=== PATIENT | male | born 1965 | race Caucasian/White ===

== ENCOUNTER → 2020-07-20 10:01 | Outpatient (BNVA) | payer OTHER, SELFPAY | PROVIDERS: PCP Internal Medicine; Visit Provider Urology ==

== ENCOUNTER 2021-07-09 07:51 | Outpatient (REF) | payer OTHER, SELFPAY ==
--- NOTE | ~2021-07-09 | US_ITS ---
EXAMINATION: US RETROPERITONEAL LIMITED (RENAL ONLY) CLINICAL INFORMATION: Calculus of kidney. COMPARISON: None. TECHNIQUE: Real-time imaging of the kidneys. FINDINGS: RIGHT KIDNEY: 10.0 x 5.1 x 5.6 cm (SAG x AP x TRV). The kidney is normal in size, contour, and echogenicity. Renal cortical thickness is normal. No calculi or focal parenchymal lesions. No hydronephrosis. LEFT KIDNEY: 10.3 x 6.7 x 5.3 cm (SAG x AP x TRV). The kidney is normal in size, contour, and echogenicity. Renal cortical thickness is normal. No focal parenchymal lesions or hydronephrosis. There is an echogenic 5 x 4 mm foci, question small stone versus vascular calcification. US/US renal BI IMPRESSION: Small fibroid echogenic foci upper/midpole left kidney, question vascular calcification versus small stone. The right kidney is unremarkable. No hydronephrosis on either side.
== END 2021-07-09 07:52 | disposition home or self-care (01) ==
LOC: HO.US 07:51
PROVIDERS: PCP Internal Medicine; Visit Provider Urology
DX: N20.0 Calculus of kidney (principal)
CPT/HCPCS: 76775

== ENCOUNTER → 2021-07-26 08:10 | Outpatient (BNVA) | payer OTHER, SELFPAY | PROVIDERS: PCP Internal Medicine; Visit Provider Urology ==

== ENCOUNTER 2022-07-07 07:45 | Outpatient (REF) | payer OTHER, SELFPAY ==
--- NOTE | ~2022-07-07 | US_ITS ---
EXAMINATION: US RETROPERITONEAL LIMITED (RENAL ONLY) CLINICAL INFORMATION: Calculus of kidney. COMPARISON: Renal ultrasound 07/09/2021. TECHNIQUE: Real-time imaging of the kidneys. FINDINGS: RIGHT KIDNEY: 10.6 x 6.2 x 5.6 cm (SAG x AP x TRV). The kidney is normal in size, contour, and echogenicity. Renal cortical thickness is normal. No calculi or focal parenchymal lesions. No hydronephrosis. LEFT KIDNEY: 11.2 x 6.7 x 4.5 cm (SAG x AP x TRV). The kidney is normal in size, contour, and echogenicity. Renal cortical thickness is normal. No calculi or focal parenchymal lesions. No hydronephrosis. US/US renal BI IMPRESSION: Unremarkable examination.
== END 2022-07-07 07:46 | disposition home or self-care (01) ==
LOC: HO.US 07:45
PROVIDERS: PCP Internal Medicine; Visit Provider Urology
DX: N20.0 Calculus of kidney (principal)
CPT/HCPCS: 76775

== ENCOUNTER → 2022-07-25 10:59 | Outpatient (BNVA) | payer OTHER, SELFPAY | PROVIDERS: PCP Internal Medicine; Visit Provider Urology | DX: Z13.89 Encounter for screening for other disorder (principal) ==

== ENCOUNTER 2023-07-13 07:30 | Outpatient (REF) | payer OTHER, SELFPAY ==
--- NOTE | ~2023-07-13 | US_ITS ---
EXAMINATION: US RETROPERITONEAL LIMITED (RENAL ONLY) CLINICAL INFORMATION: Calculus of kidney. COMPARISON: Renal ultrasound 07/07/2022 and 07/09/2021. TECHNIQUE: Real-time imaging of the kidneys. FINDINGS: RIGHT KIDNEY: 10.3 x 6.5 x 5.8 cm (SAG x AP x TRV). The kidney is normal in size, contour, and echogenicity. Renal cortical thickness is normal. No calculi or focal parenchymal lesions. No hydronephrosis. LEFT KIDNEY: 10.4 x 6.6 x 4.2 cm (SAG x AP x TRV). The kidney is normal in size, contour, and echogenicity. Renal cortical thickness is normal. No focal parenchymal lesions or hydronephrosis. There are 2 renal stones seen on the left are in the upper pole nonobstructing calculus measured 0.3 cm and in the lower pole 0.3 cm calculus seen as well US/US renal BI IMPRESSION: Nonobstructing 0.3 cm stones in left kidney
== END 2023-07-13 07:31 | disposition home or self-care (01) ==
LOC: HO.US 07:30
PROVIDERS: PCP Internal Medicine; Visit Provider Urology
DX: N20.0 Calculus of kidney (principal)
CPT/HCPCS: 76775

== ENCOUNTER 2023-09-01 13:29 | Outpatient (AMB) | payer OTHER, SELFPAY ==
--- NOTE | 2023-09-01 13:42 | A.OFFVIS_ITS ---
Intake Intake Visit Reasons: 1Y US(SET)confirmed Intake Note: Patient is Present for Follow Up Urology Medication:Vitamin B6 Antibiotic Allergies: Penicillins Blood Thinners: None Allergies penicillin V Allergy (Unknown, Verified 07/25/22 11:26) Unknown Penicillins [PENICILLINS] Allergy (Unknown, Verified 07/25/22 11:26) UNKNOWN REACTION-CHILDHOOD ALLERGY Iodinated Contrast Media [IV CONTRAST] Adverse Reaction (Severe, Verified 07/25/22 11:26) SEVERE CHILLS HPI HPI Comments History of Present Illness Details Mr Burns is a very pleasant male. He is a patient Dr Whipple. He is seen for the following urologic conditions. 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 The patient previously had kidney stones whose composition w calcium oxalate. Laboratory investigations include no recent labs. 24 Hour urine evaluation 05/24 low-volume, borderline calcium, high oxalate, low citrate 11/23 Good volume, , Hypercalciuria (> 200mg), High Sodium (> 100mEq), good oxalate, good citrate 05/25 , Good Volume > 2.00 L, Low calcium < 200, High Citrate, Oxalate up, High Sodium (> 100mEq) 05/26 good volume, high calcium, high oxalate. Prior treatment(s) include right, ureteroscopy 05/24 , medical management, with allopurinol, with dietary advice to increase fluids, decrease salt and watch protein intake 05/25 Vit B6, K-cit Prior imaging includes 2013 a KUB x-ray, showing no evidence of stones 12/22 , a KUB x-ray, showing radiodense stone(s), on the right 2-3mm, 03/24 , a renal , showing radiodense stone(s), bilaterally, 5-10 mm, 05/24 , a KUB x-ray, showing radiodense stone(s), on the right, 1-2 mm 11/23 , a renal ultrasound, showing no evidence of stones, 05/25 , a renal ultrasound, showing no evidence of stones 05/26, a renal ultrasound, showing no evidence of stones 06/28 renal ultrasound with no evidence of stones, 06/29 renal ultrasound question of small stone on left versus vascular calcification, 06/30 no evidence of stones Current therapeutic plan will be continue medications Imaging as required [facility] Medical History HTN (hypertension) Hyperlipidemia Diabetes mellitus Gout Asthma Hypernatriuria Hyperoxaluria Hypocitraturia Calcium oxalate calculus Calculus of both kidneys Surgical History History of surgery Review of Systems Const Denies chills and Denies fever(s) Card Reports no additional complaints and Denies syncope Resp Denies cough GI Denies abdominal pain and Denies heartburn Reports as per HPI and Denies change in libido Neuro Denies syncope Psych Denies change in libido Endo Denies change in libido Physical Exam Const General: cooperative, healthy appearing, comfortable and no acute distress Orientation/consciousness: patient oriented x3 HEENT Face and sinus: Yes normal facial exam Mouth: moist mucous membranes Neck Neck: Yes normal visual inspection, Yes full ROM and Yes trachea midline Chest Chest palpation & inspection: normal inspection of the chest Resp Effort & Inspection: normal respiratory effort, able to speak in complete sentences and no respiratory distress GI Inspection: Yes normal to inspection Back/Spine/Pelvis Cervical Spine: normal cervical lordosis Thoracic/Lumbar Spine: thoracic and lumbar spine normal to inspection Skin General skin exam: no rashes or lesions noted Neuro General: patient oriented x3, gait normal, tone normal and moves all extremities Extrem General: Yes normal to inspection and Yes capillary refill normal Assessment & Plan Assessment & Plan (1) Nephrolithiasis: Code(s): N20.0 - Calculus of kidney Plan Would like to check stones in 6 months Orders: Orders US renal BI 6 Months N20.0 - Calculus of kidney Patient Instructions: Imaging studies, laboratory and physical exam results were discussed and reviewed in detail. No major barriers to patient understanding were identified. An opportunity to ask questions regarding the treatment plan was provided. All questions were answered. The patient expressed understanding and agreement with the above treatment plan. The patient is aware they should contact our office by phone for worsening of their current condition or the appearance of new urologic symptoms. Compliance is encouraged with any medications and followup testing that is ordered. It is a privilege to participate in the urologic care of your patient. If you have any questions or concerns regarding treatment for the above conditions, or other urologic issues, please do not hesitate to contact me. The office telephone contact is [phone]. This note is constructed using voice recognition software. While every effort has been made to ensure accuracy tractor operator helper errors may have been included. Yours sincerely, Dr Matthew Arboleda MD, A[facility] - Urology Providers of Expert, Compassionate Care for the Genitourinary System Coding Level of Care Code Est Pt Level 4 (53714) Diagnoses Nephrolithiasis N20.0
== END 2023-09-01 14:48 | disposition home or self-care (01) ==
PROVIDERS: Visit Provider Urology
DX: N20.0 Calculus of kidney (principal)
CPT/HCPCS: 99213

== ENCOUNTER → 2023-09-01 13:29 | Outpatient (BNVA) | payer OTHER, SELFPAY | PROVIDERS: Visit Provider Urology ==

== ENCOUNTER 2024-02-09 10:43 | Outpatient (REF) | payer OTHER, SELFPAY ==
--- NOTE | ~2024-02-09 | US_ITS ---
EXAMINATION: I plan to deliver treatment to confirm US RETROPERITONEAL COMPLETE (RENAL) CLINICAL INFORMATION: Calculus of kidney. COMPARISON: 07/13/2023 TECHNIQUE: Real-time imaging of the kidneys and bladder. Limited visualization due to bowel gas. FINDINGS: RIGHT KIDNEY: 10.8 x 5.5 x 6.2 cm (SAG x AP x TRV). No hydronephrosis. No renal calculi. Renal cortical thickness is normal. Limited visualization. LEFT KIDNEY: 10.6 x 6.4 x 4.1 cm (SAG x AP x TRV). A 3 mm upper pole calculus. No hydronephrosis. Renal cortical thickness is normal. Limited visualization. US/US renal BI IMPRESSION: Left renal 3 mm nonobstructing calculus. No hydronephrosis. Electronically signed by: Amalia Harris MD 02/10/2024 04:50 PM EDT
== END 2024-02-09 10:44 | disposition home or self-care (01) ==
LOC: HO.US 10:43
PROVIDERS: PCP Internal Medicine; Visit Provider Urology
DX: N20.0 Calculus of kidney (principal)
CPT/HCPCS: 76775

== ENCOUNTER 2024-03-01 13:28 | Outpatient (AMB) | payer OTHER, SELFPAY ==
--- NOTE | 2024-03-01 13:50 | A.OFFVIS_ITS ---
Intake Visit Reasons: 6M Ultrasound Follow Up(set) Intake Note: Patient is Present for 6M ULTRASOUND Follow Up Urology Medication:Vitamin B6,ALLOPURINOL Antibiotic Allergies: Penicillins Blood Thinners: None Neurology Director Required: No Allergies penicillin V Allergy (Unknown, Verified 03/01/24 13:51) Unknown Penicillins [PENICILLINS] Allergy (Unknown, Verified 03/01/24 13:51) UNKNOWN REACTION-CHILDHOOD ALLERGY Iodinated Contrast Media [IV CONTRAST] Adverse Reaction (Severe, Verified 03/01/24 13:51) SEVERE CHILLS Medication List - Last Reconciled 03/01/24 by Matthew Arboleda MD albuterol sulfate 90 mcg/actuation 2 puffs PO Q4H allopurinol 300 mg PO DAILY losartan 25 mg PO DAILY magnesium gluconate 27 mg PO DAILY 90 days mometasone 50 mcg/actuation 2 sprays intranasal DAILY pyridoxine (vitamin B6) 100 mg PO DAILY 90 days HPI Comments Details: Mr Burns is a very pleasant male. He is a patient Dr Whipple. He is seen for the following urologic conditions. 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 The patient previously had kidney stones whose composition w calcium oxalate. Laboratory investigations include no recent labs. 24 Hour urine evaluation 05/24 low-volume, borderline calcium, high oxalate, low citrate 11/23 Good volume, , Hypercalciuria (> 200mg), High Sodium (> 100mEq), good oxalate, good citrate 05/25 , Good Volume > 2.00 L, Low calcium < 200, High Citrate, Oxalate up, High Sodium (> 100mEq) 05/26 good volume, high calcium, high oxalate. Prior treatment(s) include right, ureteroscopy 05/24 , medical management, with allopurinol, with dietary advice to increase fluids, decrease salt and watch protein intake 05/25 Vit B6, K-cit Prior imaging includes 2013 a KUB x-ray, showing no evidence of stones 12/22 , a KUB x-ray, showing radiodense stone(s), on the right 2-3mm, 03/24 , a renal , showing radiodense stone(s), bilaterally, 5-10 mm, 05/24 , a KUB x-ray, showing radiodense stone(s), on the right, 1-2 mm 11/23 , a renal ultrasound, showing no evidence of stones, 05/25 , a renal ultrasound, showing no evidence of stones 05/26, a renal ultrasound, showing no evidence of stones 06/28 renal ultrasound with no evidence of stones, 06/29 renal ultrasound question of small stone on left versus vascular calcification, 06/30 no evidence of stones Current therapeutic plan will be continue medications Imaging as required [facility] Medical History HTN (hypertension) Hyperlipidemia Diabetes mellitus Gout Asthma Hypernatriuria Hyperoxaluria Hypocitraturia Calcium oxalate calculus Calculus of both kidneys Surgical History History of surgery Assessment & Plan Assessment & Plan (1) Nephrolithiasis: Code(s): N20.0 - Calculus of kidney Category: Medical Plan 12 month follow-up renal imaging Orders: Orders US renal BI 12 Months N20.0 - Calculus of kidney Patient Instructions: Imaging studies, laboratory and physical exam results were discussed and reviewed in detail. No major barriers to patient understanding were identified. An opportunity to ask questions regarding the treatment plan was provided. All questions were answered. The patient expressed understanding and agreement with the above treatment plan. The patient is aware they should contact our office by phone for worsening of their current condition or the appearance of new urologic symptoms. Compliance is encouraged with any medications and followup testing that is ordered. It is a privilege to participate in the urologic care of your patient. If you have any questions or concerns regarding treatment for the above conditions, or other urologic issues, please do not hesitate to contact me. The office telephone contact is [phone]. This note is constructed using voice recognition software. While every effort has been made to ensure accuracy senior construction project manager errors may have been included. Yours sincerely, Dr Matthew Arboleda MD, [facility] - Urology Providers of Expert, Compassionate Care for the Genitourinary System Coding Level of Care Code Est Pt Level 3 (77011) Diagnoses Nephrolithiasis N20.0
== END 2024-03-01 15:28 | disposition home or self-care (01) ==
PROVIDERS: PCP Internal Medicine; Visit Provider Urology
DX: N20.0 Calculus of kidney (principal)
CPT/HCPCS: 99213

== ENCOUNTER → 2024-03-01 13:28 | Outpatient (BNVA) | payer OTHER, SELFPAY | PROVIDERS: PCP Internal Medicine; Visit Provider Urology ==

== ENCOUNTER 2025-02-07 10:19 | Outpatient (REF) | payer OTHER, SELFPAY ==
--- NOTE | ~2025-02-07 | US_ITS ---
CLINICAL HISTORY: N20.0 - Calculus of kidney US of kidneys Comparison: US/SR - US RENAL BI - 02/09/24 10:48 EDT Findings: Right kidney is normal in size, echogenicity and morphology, 10.7 cm in length. No calculus, mass or hydronephrosis. Left kidney is normal in size, echogenicity and morphology, 10.5 cm in length. 5 mm calculus at the midpole, no mass or hydronephrosis. Limited color Doppler demonstrates unremarkable bilateral blood flow. Impression: Nonobstructing left nephrolithiasis. This document has been electronically signed by: Anaid Noel MD on 02/07/2025 13:21:10
--- OUTSIDE RECORDS SUMMARY | 2025-02-07 11:51 | XMS_ITS | Clinical Summary ---
Author Organization [facility] Address [address] [place] [phone] Phone Care Team Providers Care Commercial Illustrator Name Role Phone Daniel Whipple MD Primary Care Provider [phone] Medications losartan (COZAAR) 25 MG tablet Take 1 tablet by mouth daily. Active mometasone (NASONEX) 50 mcg/actuation nasal spray 2 sprays in each nostril Nasally Once a day Active allopurinol (ZYLOPRIM) 100 MG tablet Take 1 tablet by mouth daily. Active Encounters Date Type Department Care Team Description 01/13/2025 8:30 AM EDT - 01/13/2025 11:59 PM EDT Hospital Encounter [facility] [address] [place] [address] Daniel Whipple MD Discharge Disposition: Home or Self Care from Last 3 Months Social History Tobacco Use Types Packs/Day Years Used Date Smoking Tobacco: Never Assessed Education Answer Date Recorded Are you interested in more education? Not on henrique e 05/14/2023 Are you concerned about learning? Not on file 05/14/2023 No 05/14/2023 No 05/14/2023 Digital Access Answer Date Recorded No 05/14/2023 No 05/14/2023 Reliable internet access at home? Not on file 05/14/2023 Device with a working camera? Not on file Sex and Gender Information Value Date Recorded Sex Assigned at Not on file Legal Sex Male 9:42 PM EDT Gender Identity Not on file Sexual Orientation Not on file Last Filed Vital Signs Vital Sign Reading Time Taken Comments Blood Pressure 134/90 05/14/2023 1:50 PM EST Pulse 69 06/13/2016 8:30 AM EST Temperature - - Respiratory Rate - - Oxygen Saturation 98% 05/14/2023 1:00 PM EST Inhaled Oxygen Concentration - - Weight 87.3 kg (192 lb 6.4 oz) 06/13/2016 8:30 A M EST Height 175.3 cm (5' 9 ) 06/13/2016 8:30 AM EST Body Mass Index 28.41 06/13/2016 8:30 AM EST Plan of Treatment Not on file Medical Devices Not on file Procedures Procedure Name Priority Date/Time Associated Diagnosis Comments ANATOMIC PATHOLOGY Routine 01/13/2025 12 :00 AM EDT from Last 3 Months Results * Anatomic Pathology (01/13/2025 12:00 AM EDT) 01/13/2025 01/16/2025 10: 51 AM EDT Narrative SEE NARRATIVE - 01/17/2025 2:43 [place] [address] Customer Energy Specialist: Darren Roblero MD Surgical Pathology Report FINAL PATHOLOGIC DIAGNOSIS: SKIN, HAND, SHAVE BIOPSY: Cellular dermatofibroma. Note: Immunostains reveals that the lesional cells are nonreactive with CD34, pancytokeratin and S100. There is no evidence of dermatofibrosarcoma protuberans or an epithelial or melanocytic lesion. Electronically Signed Out By Genevieve Hollingsworth MD By his/her signature above, the pathologist listed as making the Final Diagnosis certifies that he/she has personally reviewed this case and confirmed or corrected the diagnosis. CLINICAL HISTORY Follicular cyst of the skin on hand and subcutaneous tissue, unspecified (L72.9) SPECIMENS SUBMITTED: A: SKIN, HAND, BIOPSY GROSS DESCRIPTION SKIN, HAND, BIOPSY: Received in formalin is a 0.6 x 0.6 cm circular portion of edward skin excised to maximum depth of 0.1 cm which exhibits a 0.5 x 0.4 x 0.2 cm firm, edward papule. The specimen is bisected and entirely submitted in a single cassette labeled A1. Grossed by: RAYMON Johnson, FLACA(ASCP) HINA 01/17/2025 Grossing Staff: [email or web address] One or more of the reagents used in immunohistochemical testing in this case may not have been cleared or approved by the U.S. Food and Drug Administration (FDA). The FDA has determined that such clearance or approval is not necessary. These tests are used for clinical purposes. This should not be regarded as investigational or for research. These reagents' performance characteristics have been determined by the [facility]. This laboratory is certified under the Clinical Laboratory Improvement Amendments of 1988 (CLIA-88) as qualified to perform high complexity clinical laboratory testing. Immunohistochemistry is performed on formalin-fixed paraffin-embedded sections (unless otherwise specified) and on a Benchmark Ultra immunostainer which utilizes a proprietary polymer detection system. Positive, negative and internal controls, when present, stain appropriately. Patient Name: JOSH ROJAS : 1965 (Age: 59) Sex: M Institution: [facility] Location: [facility] Date of Operation: 01/13/2025 Date of Reported: 01/17/2025 14:43 Results To: Daniel Whipple MD, BS Daniel Whipple MD PATHOLOGY ORDERABLES Final Resu lt SEE NARRATIVE from Last 3 Months Insurance [facility] TOTAL CHOICE INDEMNITY [facility] [facility] TOTAL CHOICE INDEMNITY [employer] [facility] TOTAL CHOICE INDEMNITY [employer] TOTAL CHOICE INDEMNITY [employer] TOTAL CHOICE INDEMNITY [facility] TOTAL CHOICE INDEMNITY Care Teams Commercial Illustrator Relationship Specialty Start Date End Date Daniel Whipple MD [email or web address] PCP - General 06/11/17 Additional Source Comments The information contained in this document represents components of the legal health record. It is not the complete legal health record.[facility]
== END 2025-02-07 10:20 | disposition home or self-care (01) ==
LOC: HO.US 10:19
PROVIDERS: PCP Internal Medicine; Visit Provider Urology
DX: N20.0 Calculus of kidney (principal)
CPT/HCPCS: 76775

== ENCOUNTER → 2025-02-07 10:20 | Outpatient (BNV) | payer OTHER, SELFPAY | PROVIDERS: PCP Internal Medicine; Visit Provider Radiology Diagnostic Radiology | DX: N20.0 Calculus of kidney (principal) | CPT/HCPCS: 76775 ==

== ENCOUNTER 2025-03-01 09:09 | Outpatient (AMB) | payer OTHER, SELFPAY ==
--- NOTE | 2025-03-01 09:19 | A.OFFVIS_ITS ---
Intake Visit Reasons: 1y/US Intake Note: Patient is Present for 1 yr ULTRASOUND Follow Up Urology Medication:Vitamin B6,ALLOPURINOL Antibiotic Allergies: Penicillins Blood Thinners: None Imaging : Ultrasound 02/07/25 Laundry Agent Required: No Accompanied by: Self / Same As Patient Allergies penicillin V Allergy (Unknown, Verified 03/01/25 09:20) Unknown Penicillins (PENICILLINS) Allergy (Unknown, Verified 03/01/25 09:20) UNKNOWN REACTION-CHILDHOOD ALLERGY Iodinated Contrast Media (IV CONTRAST) Adverse Reaction (Severe, Verified 03/01/25 09:20) SEVERE CHILLS HPI Comments Details: Mr Burns is a very pleasant male. He is a patient Dr Whipple. He is seen for the following urologic conditions. - nephrolithiasis Six-month follow-up stones Current renal ultrasound small stone left side persistent over time Continue allopurinol, pyroxidine Encourage 64 oz of water per day with 1 oz lemon juice Discussed current job with [employer] management Nephrolithiasis/Urolithiasis: Urolithiasis was diagnosed [address] Johnson. The patient previously had kidney stones whose composition w calcium oxalate. Laboratory investigations include no recent labs. 24 Hour urine evaluation 05/24 low-volume, borderline calcium, high oxalate, low citrate 11/23 Good volume, , Hypercalciuria (> 200mg), High Sodium (> 100mEq), good oxalate, good citrate 05/25 , Good Volume > 2.00 L, Low calcium < 200, High Citrate, Oxalate up, High Sodium (> 100mEq) 05/26 good volume, high calcium, high oxalate. Prior treatment(s) include right, ureteroscopy 05/24 , medical management, with allopurinol, with dietary advice to increase fluids, decrease salt and watch protein intake 05/25 Vit B6, K-cit Prior imaging includes 2013 a KUB x-ray, showing no evidence of stones 12/22 , a KUB x-ray, showing radiodense stone(s), on the right 2-3mm, 03/24 , a renal , showing radiodense stone(s), bilaterally, 5-10 mm, 05/24 , a KUB x-ray, showing radiodense stone(s), on the right, 1-2 mm 11/23 , a renal ultrasound, showing no evidence of stones, 05/25 , a renal ultrasound, showing no evidence of stones 05/26, a renal ultrasound, showing no evidence of stones 06/28 renal ultrasound with no evidence of stones, 06/29 renal ultrasound question of small stone on left versus vascular calcification, 06/30 no evidence of stones - 12/30 renal ultrasound small stone left Current therapeutic plan will be continue medications Imaging as required COUNTS INCLUDE 234 BEDS AT [facility] Medical History HTN (hypertension) Hyperlipidemia Diabetes mellitus Gout Asthma Hypernatriuria Hyperoxaluria Hypocitraturia Calcium oxalate calculus Calculus of both kidneys Surgical History History of surgery Review of Systems Const Denies chills and Denies fever(s) Card Reports no additional complaints and Denies syncope Resp Denies cough GI Denies abdominal pain and Denies heartburn Reports as per HPI and Denies change in libido Neuro Denies syncope Psych Denies change in libido Endo Denies change in libido Physical Exam Const General: cooperative, healthy appearing, comfortable and no acute distress Orientation/consciousness: patient oriented x3 HEENT Face and sinus: Yes normal facial exam Mouth: moist mucous membranes Neck Neck: Yes normal visual inspection, Yes full ROM and Yes trachea midline Chest Chest palpation & inspection: normal inspection of the chest Resp Effort & Inspection: normal respiratory effort, able to speak in complete sentences and no respiratory distress GI Inspection: Yes normal to inspection Back/Spine/Pelvis Cervical Spine: normal cervical lordosis Thoracic/Lumbar Spine: thoracic and lumbar spine normal to inspection Skin General skin exam: no rashes or lesions noted Neuro General: patient oriented x3, gait normal, tone normal and moves all extremities Extrem General: Yes normal to inspection and Yes capillary refill normal Assessment & Plan Assessment & Plan (1) Nephrolithiasis: Code(s): N20.0 - Calculus of kidney Category: Medical Plan Twelve month follow-up renal ultrasound tele Orders: Orders US renal BI 12 Months N20.0 - Calculus of kidney Patient Instructions: This note is constructed using voice recognition software. While every effort has been made to ensure accuracy secretary receptionist errors may have been included. Imaging studies, laboratory and physical exam results were discussed and reviewed in detail. No major barriers to patient understanding were identified. An opportunity to ask questions regarding the treatment plan was provided. All questions were answered. The patient expressed understanding and agreement with the above treatment plan. The patient is aware they should contact our office by phone for worsening of their current condition or the appearance of new urologic symptoms. Compliance is encouraged with any medications and followup testing that is ordered. It is a privilege to participate in the urologic care of your patient. If you have any questions or concerns regarding treatment for the above conditions, or other urologic issues, please do not hesitate to contact me. The office telephone contact is [phone]. Sincerely, Dr Matthew Arboleda MD, [facility] - Urology Compassionate Specialist Care for the Genitourinary System Coding Level of Care Code Est Pt Level 4 (03489) Diagnoses Nephrolithiasis N20.0
--- OUTSIDE RECORDS SUMMARY | 2025-03-01 10:46 | XMS_ITS | Clinical Summary ---
Author Organization [facility] Address [address] [place] [id number] Phone Care Team Providers Care Real Estate Rental Agent Name Role Phone Daniel Whipple MD Primary Care Provider [phone] Medications losartan (COZAAR) 25 MG tablet Take 1 tablet by mouth daily. Active mometasone (NASONEX) 50 mcg/actuation nasal spray 2 sprays in each nostril Nasally Once a day Active allopurinol (ZYLOPRIM) 100 MG tablet Take 1 tablet by mouth daily. Active Encounters Date Type Department Care Team Description 01/13/2025 8:30 AM EDT - 01/13/2025 11:59 PM EDT Hospital Encounter [facility] [address] [place] [address] Daniel Whipple MD Discharge Disposition: Home or [...] SEE NARRATIVE - 01/17/2025 2:43 [place] [address] Day Care Home Provider: Darren Roblero MD Surgical Pathology Report FINAL [...] performance characteristics have been determined by the [facility]. This laboratory is certified under the Clinical [...] : 1965 (Age: 59) Sex: M Institution: [facility] Location: [facility] Date of Operation: 01/13/2025 Date of Reported: 01/17/2025 14:43 Results To: Daniel Whipple MD, BS Daniel Whipple MD PATHOLOGY ORDERABLES Final Resu lt SEE NARRATIVE from Last 3 Months Insurance [facility] TOTAL CHOICE INDEMNITY [employer] [facility] TOTAL CHOICE INDEMNITY [employer] [facility] TOTAL CHOICE INDEMNITY [employer]OTAL [employer] INDEMNITY [employer] INDEMNITY [facility] TOTAL CHOICE INDEMNITY Care Teams Real Estate Rental Agent Relationship Specialty Start Date End Date Daniel Whipple MD [email or web address] PCP - General 06/11/17 Additional Source Comments The information contained in this document represents components of the legal health record. It is not the complete legal health record.[facility]
== END 2025-03-01 10:05 | disposition home or self-care (01) ==
LOC: HO.HUSH 09:10
PROVIDERS: PCP Internal Medicine; Visit Provider Urology
DX: N20.0 Calculus of kidney (principal)
CPT/HCPCS: 99214